=== PATIENT | female | born 1965 | race Caucasian/White ===

== ENCOUNTER 2019-08-05 06:16 | Day surgery (SDC) | payer OTHER ==
[2019-08-05] MEDS ORDERED: FENTAnyl 50 MCG/ML VIAL (09:52)
[2019-08-05] MEDS ORDERED: MIDAZOLAM 1 MG/ML 2 ML INJ ×2 (09:53)
== END 2019-08-05 10:54 | disposition home or self-care (01) ==
LOC: GIL 06:16
DX: D12.3 Benign neoplasm of transverse colon (principal); K64.8 Other hemorrhoids
CPT/HCPCS: 45380; 84703; 88305